=== PATIENT | male | born 2000 | race Two or more races ===

== ENCOUNTER 2025-01-30 08:19 | Emergency (ER) | payer OTHER ==
[~2025-01-30] VITALS: Ht 165.1 cm; Wt 79.4 kg
[2025-01-30] MEDS ORDERED: FAMOTIDINE/PF 20 MG in 0.9 % SODIUM CHLORIDE 8 ML IV PUSH STA (08:35)
[2025-01-30] MEDS ORDERED: ONDANSETRON HCL 2 MG/ML VIAL ONE (08:42)
[2025-01-30] MEDS ORDERED: FAMOTIDINE/PF 20 MG/2 ML VIAL ONE (08:43)
[2025-01-30] MEDS ORDERED: ONDANSETRON HCL 2 MG/ML VIAL IV ONE (08:45)
[2025-01-30 09:05] LABS: HEMOGLOBIN 15.2 g/dL (13-16.00); MEAN CELL VOLUME 84.2 fL (80.0-100.00); MEAN CORPUSCULAR HEMOGLOBIN 29.1 pg (27.00-32.0); MEAN CORPUSCULAR HGB CONC 34.6 g/dl (32.0-36.0); PLATELET COUNT 291 K/uL (150-450); RED BLOOD COUNT 5.23 M/uL (4.00-6.00); RED CELL DISTRIBUTION WIDTH 13.7 % (11.5-14.5)
[2025-01-30 09:23] LABS: INFLUENZA A AG NEGATIVE (NEGATIVE)
[2025-01-30 10:06] LABS: COVID-19 AG NEGATIVE (NEGATIVE)
[2025-01-30] MEDS ORDERED: PEPCID AC20 MG PO (10:18)
== END 2025-01-30 10:36 | disposition home or self-care (01) ==
LOC: ER 08:21
PROVIDERS: General Practice
DX: B34.9 Viral infection, unspecified (principal); R53.81 Other malaise; Z20.822 Contact with and (suspected) exposure to COVID-19

== ENCOUNTER 2025-03-14 14:50 | Emergency (ER) | payer OTHER ==
[~2025-03-14] VITALS: Ht 165.1 cm; Wt 76.2 kg
[~2025-03-14 14:50] MED LIST: PEPCID AC20 MG PO
[2025-03-14 18:58] LABS: BASO % 0.5 % (0.1-1.2); EOS # 0.08 (0.04-0.54); EOS % 1.3 % (0.7-7.0); HEMATOCRIT 42.4 % (40.1-51.0); HEMOGLOBIN 14.7 g/dL (13.7-17.5); LYMPH # 2.09 (1.18-3.74); MEAN CORPUSCULAR HEMOGLOBIN 28.1 pg (25.6-32.2); MONO # 0.67 (0.24-0.82); MONO % 10.9 % (4.7-12.5); NEUT # 3.26 (1.56-6.13); NEUT % 53.1 % (34.0-71.1); PLATELET COUNT 279 K/uL (163-369); RED BLOOD COUNT 5.23 M/uL (4.63-6.08); RED CELL DISTRIBUTION WIDTH 12.7 % (11.6-14.4)
[2025-03-14 19:22] LABS: BILIRUBIN TOTAL 0.81 mg/dL (0.3-1.2); CALCIUM 9.7 mg/dL (8.5-10.1); CREATININE SERUM 0.76 mg/dL (0.70-1.30); GFR 123.03; GLOBULINA 3.4 G/DL (2.4-3.5); POTASSIUM 3.9 mEq/L (3.5-5.1); TOTAL PROTEIN 7.4 gm/dL (6.4-8.2)
== END 2025-03-14 22:05 ==
LOC: ER 14:50
PROVIDERS: Preventive Medicine Public Health & General Preventive Medicine
DX: R00.2 Palpitations (principal)